=== PATIENT | male | born 1965 | race Caucasian/White ===

== ENCOUNTER 2018-01-19 04:32 | Inpatient (IN) | payer OTHER ==
[~2018-01-19] VITALS: Ht 175.3 cm; Wt 70.1 kg
[2018-01-19 04:42] VITALS: Ht 175.3 cm; Wt 70.1 kg
[2018-01-19 06:50] LABS: CALCIUM 8.8 mg/dL (8.5-10.1); CHLORIDE SERUM 101 mmol/L (98-107); CREATININE SERUM 1.1 mg/dL (0.7-1.3); GFR1 > 60 mL/min; GLUCOSE SERUM 381 mg/dL (74-106); POTASSIUM SERUM 4.3 mmol/L (3.5-5.1); SODIUM SERUM 138 mmol/L (136-145)
[2018-01-19 06:58] LABS: ALKALINE PHOSPHATASE 120 U/L (46-116); ALT/SGPT 23 U/L (16-63); AST/SGOT 16 U/L (15-37); BILIRUBIN TOTAL 0.3 mg/dL (0.20-1.00); TOTAL PROTEIN, SERUM 7.3 g/dL (6.4-8.2)
[2018-01-19 07:03] LABS: BASOPHIL % 0.3 % (0-2); PLATELET COUNT 242 x10^3mcL (130-400); RED CELL DISTRIBUTION WIDTH 13.2 % (11.5-14.5)
[2018-01-19 09:10] LABS: microscopic required? NO
[2018-01-19 09:39] LABS: UA SPECIFIC GRAVITY 1.015 (1.005-1.035); urine erythrocyte NEGATIVE (NEGATIVE)
[2018-01-19 09:42] LABS: FREE T4 1.06 ng/dL (0.76-1.46); FREE THYROXINE INDEX 2.6 ug/dL (1.4-4.5); T4(THYROXINE) 6.9 ug/dL (4.7-13.3)
[2018-01-19 09:57] LABS: CHOLESTEROL/HDL RATIO 3.1; PHOSPHOROUS 3.2 mg/dL (2.5-4.9)
[2018-01-19 10:20] LABS: AMPHETAMINE QUAL UR POSITIVE
[2018-01-19 10:29] VITALS: BP 108/78
[2018-01-19 17:40] VITALS: BP 111/69
[2018-01-19 20:44] VITALS: BP 126/75
[2018-01-20 05:43] VITALS: BP 124/77
[2018-01-20 09:09] VITALS: BP 110/68
[2018-01-20 12:36] VITALS: BP 114/70
[2018-01-20 16:06] VITALS: BP 110/68
[2018-01-20 20:24] LABS: BASOPHIL % 0.4 % (0-2); PLATELET COUNT 248 x10^3mcL (130-400); RED CELL DISTRIBUTION WIDTH 13.4 % (11.5-14.5)
[2018-01-20 20:31] LABS: CALCIUM 8.6 mg/dL (8.5-10.1); CARBON DIOXIDE 29.9 mmol/L (21-32); CHLORIDE SERUM 101 mmol/L (98-107); GFR1 > 60 mL/min; GLUCOSE SERUM 300 mg/dL (74-106); POTASSIUM SERUM 4.5 mmol/L (3.5-5.1); SODIUM SERUM 137 mmol/L (136-145)
[2018-01-20 20:53] VITALS: BP 111/73
[2018-01-21 05:00] VITALS: BP 112/72
[2018-01-21 07:44] LABS: CALCIUM 8.5 mg/dL (8.5-10.1); CARBON DIOXIDE 27.7 mmol/L (21-32); CHLORIDE SERUM 102 mmol/L (98-107); CREATININE SERUM 0.8 mg/dL (0.7-1.3); GFR1 > 60 mL/min; GLUCOSE SERUM 284 mg/dL (74-106); MAGNESIUM 1.6 mg/dL (1.8-2.4); PHOSPHOROUS 3.5 mg/dL (2.5-4.9); POTASSIUM SERUM 4.6 mmol/L (3.5-5.1); SODIUM SERUM 138 mmol/L (136-145)
[2018-01-21 07:51] LABS: BASOPHIL % 0.4 % (0-2); PLATELET COUNT 245 x10^3mcL (130-400); RED CELL DISTRIBUTION WIDTH 13.6 % (11.5-14.5)
[2018-01-21 08:21] VITALS: BP 117/77
[2018-01-21 08:25] VITALS: BP 117/77
== END 2018-01-21 12:50 | disposition left against medical advice (07) | DRG 380 ==
LOC: ED 04:32 → DU 08:03
PROVIDERS: Emergency Medicine; Family Medicine; Student in an Organized Health Care Education/Training Program
PROC: 0JBQ0ZZ Excision of Right Foot Subcutaneous Tissue and Fascia, Open Approach (ICD-10-PCS; principal; 2018-01-19)
DX: E11.621 Type 2 diabetes mellitus with foot ulcer (principal); L97.519 Non-pressure chronic ulcer of other part of right foot with unspecified severity; N17.0 Acute kidney failure with tubular necrosis; L03.115 Cellulitis of right lower limb; E11.40 Type 2 diabetes mellitus with diabetic neuropathy, unspecified; E11.65 Type 2 diabetes mellitus with hyperglycemia; Z53.21 Procedure and treatment not carried out due to patient leaving prior to being seen by health care provider; F17.210 Nicotine dependence, cigarettes, uncomplicated; E44.1 Mild protein-calorie malnutrition; Z68.24 Body mass index [BMI] 24.0-24.9, adult
CPT/HCPCS: 82962; 83880; 84439; J0696; J1815; J3490; J7030; Q0092

== ENCOUNTER 2018-12-06 00:44 | Inpatient (IN) | payer OTHER ==
[~2018-12-06] VITALS: Ht 172.7 cm; Wt 72.6 kg
[2018-12-06 00:51] VITALS: Ht 172.7 cm; Wt 72.6 kg
--- NOTE | 2018-12-06 00:59 | NUR ---
PT BIB [facility] WITH C/O SHARP SUPRASTERNAL CHEST PAIN X2 DAYS PER RESEARCH NEUROPSYCHOLOGIST +DIZZINESS -LOC +N -V RESEARCH NEUROPSYCHOLOGIST STS "I COULDN'T FIGURE OUT WHAT RHYTHM HE WAS IN" PT HX DM AND GERD UPON ARRIVAL PT AAOX4 RESPS E/U SKIN PINK DRY AND WARM PT PLACED ON FULL ORDERLY NSR PAIN LEVEL 10/10 PER PT "IT COMES AND GOES BUT FEELS LIKE HEARTBURN"
--- NOTE | 2018-12-06 01:05 | NUR ---
LAB AT BEDSIDE
--- NOTE | 2018-12-06 01:08 | NUR ---
PT PROVIDED EMESIS BAG ACTIVE VOMITING AT THIS TIME MD STREETER MADE AWARE
[2018-12-06 01:15] LABS: BASOPHIL % 0.1 % (0-2); PLATELET COUNT 243 x10^3mcL (130-400); RED CELL DISTRIBUTION WIDTH 12.7 % (11.5-14.5)
--- NOTE | 2018-12-06 01:28 | NUR ---
PT REPORTING NAUSEA AND DRY HEAVING AT THIS TIME. MD STREETER MADE AWARE.
[2018-12-06 01:30] LABS: BILIRUBIN TOTAL 0.5 mg/dL (0.20-1.00); CALCIUM 11.5 mg/dL (8.5-10.1); CARBON DIOXIDE 34.9 mmol/L (21-32); CREATININE SERUM 1.7 mg/dL (0.7-1.3)
[2018-12-06 01:33] LABS: TOTAL PROTEIN, SERUM 8.6 g/dL (6.4-8.2)
--- NOTE | 2018-12-06 01:34 | NUR ---
AT BEDSIDE TO MEDICATE PT PER EMAR. PT REFUSING MEDICATION AT THIS TIME STATING THAT NAUSEA WENT AWAY.
--- NOTE | 2018-12-06 02:19 | NUR ---
PT IN POSITION OF COMFORT RESPS E/U
[2018-12-06] MEDS ORDERED: METFORMIN HCL1000 MG PO (02:26)
[2018-12-06 02:58] LABS: T3 TOTAL 1.31 ng/mL
[2018-12-06 03:08] LABS: MAGNESIUM 1.9 mg/dL (1.8-2.4); PHOSPHOROUS 3.1 mg/dL (2.5-4.9)
[2018-12-06 03:09] LABS: CHOLESTEROL/HDL RATIO 4.4
[2018-12-06 03:18] LABS: FREE T4 1.64 ng/dL (0.76-1.46); FREE THYROXINE INDEX 4.1 ug/dL (1.4-4.5)
--- NOTE | 2018-12-06 03:30 | NUR ---
RECEIVED PT FROM ED VIA AZALIA ACCOMPANIED BY RN. AA&O X4. NO SOB ON ROOM AIR. BREATHING EVEN AND UNLABORED. C/O EPIGASTRIC PAIN 6/10 AND NAUSEA. WILL MEDICATE PER ORDER. IV TO LAC, INTACT. SAFETY MEASURES IN PLACE. BED IN LOWEST POSITION. SIDE RAILS UP X2. DEMONSTRATED HOW TO USE THE CALL LIGHT FOR ASSISTANCE. CALL LIGHT WITHIN REACH.
[2018-12-06 03:32] LABS: UA SPECIFIC GRAVITY 1.015 (1.005-1.035); microscopic required? YES
[2018-12-06 03:34] LABS: urine erythrocyte NEGATIVE (NEGATIVE)
[2018-12-06 03:37] LABS: AMPHETAMINE QUAL UR NONE DETECTED (See below)
[2018-12-06 03:53] VITALS: BP 132/61
--- NOTE | 2018-12-06 04:30 | NUR ---
ZOFRAN GIVEN FOR NAUSEA.
--- NOTE | 2018-12-06 05:00 | NUR ---
PT REFUSED NORCO AT THIS TIME. PT STATES WILL WAIT A LITTLE BIT DUE TO NAUSEA.
--- NOTE | 2018-12-06 05:15 | NUR ---
PT RESTING WITH EYES CLOSED. NO FACIAL GRIMACING. NO DISTRESS NOTED AT THIS TIME.
[2018-12-06 06:26] VITALS: BP 118/63
--- NOTE | 2018-12-06 07:10 | NUR ---
RECEIVED BEDSIDE REPORT FROM ANALYSIS INTERNSHIP NURSE. PATIENT IS SEEN RESTING COMFORTABLY IN BED. RESPIRATIONS EVEN, NO SIGNS OF APPARENT SOB, OR RESPIRATORY DISTRESS NOTED. IV INFUSING WELL INTO LAC. NO REDNESS NOTED. SAFETY PRECAUTIONS IN PLACE.
[2018-12-06 07:25] VITALS: BP 108/61
--- NOTE | 2018-12-06 07:25 | NUR ---
PT RESTING WITH EYES CLOSED. NO SOB ON ROOM AIR. NO DISTRESS NOTED. SAFETY MEASURES IN PLACE. CALL LIGHT WITHIN REACH. ENDORSED CONTINUITY OF CARE TO DAY SHIFT RN.
--- NOTE | 2018-12-06 07:30 | NUR ---
IVF NS RUNNING AT 100 CC/HR VIA IV SITE AT L AC. SCD TO BLE MAINTAINED. WILL CONTINUE TO MONITOR.
--- NOTE | 2018-12-06 08:30 | NUR ---
NEW IV SITE RESTARTED AT R FA WITH GAUGE #22 DUE TO DISLODGEMENT OF OLD IV H/L.
[2018-12-06 08:33] LABS: CALCIUM 9.8 mg/dL (8.5-10.1); CARBON DIOXIDE 33.5 mmol/L (21-32); CREATININE SERUM 1.4 mg/dL (0.7-1.3); POTASSIUM SERUM 4.4 mmol/L (3.5-5.1)
--- NOTE | 2018-12-06 08:47 | NUR ---
C/O FEELING NAUSEATED. ZOFRAN 4MG IV GIVEN.
[2018-12-06 11:11] LABS: BASOPHIL % 0.2 % (0-2); PLATELET COUNT 209 x10^3mcL (130-400)
--- NOTE | 2018-12-06 11:57 | NUR ---
CHEMICAL TREATMENT OPERATOR AT BEDSIDE.
--- NOTE | 2018-12-06 12:00 | NUR ---
TRANSFER ORDER FROM TELE TO MED SURG. DISCONTINUED TELE RETURNED MONITOR. PATIENT IS STABLE NO COMPLAINTS OF CHEST PAIN AT THIS TIME.
--- NOTE | 2018-12-06 12:24 | NUR ---
PATIENT IS RESTING IN BED. WAS COMPLAINING OF ANDREW. ADMINISTERED TYLENOL PER EMAR. AUNT AT BEDSIDE. QUESTIONS AND CONCERNS ADDRESSED. SAFETY PRECAUTIONS IN PLACE.
--- NOTE | 2018-12-06 13:15 | NUR ---
REASSESSMENT OF TYLENOL FOR HEADACHE. MEDICATION WAS EFFECTIVE. PATIENT IS RESTING COMFORATBLY AND STATES PAIN LEVEL AT 0/10 AT THIS TIME.
--- NOTE | 2018-12-06 13:33 | NUR ---
PATIENT C/O N/V. ADMINISTERED ZOFRAN PER EMAR. PATIENT TOLORATED WELL. SAFETY PRECAUTIONS IN PLACE.
--- NOTE | 2018-12-06 15:00 | NUR ---
PATIENT IN BED RESTING COMFORTABLY. FAMILY IS AT BEDSIDE. SAFETY PRECAUTIONS IN PLACE.
[2018-12-06 16:15] VITALS: BP 111/65
--- NOTE | 2018-12-06 17:02 | NUR ---
PATIENT IS IN BED RESTING COMFORTABLY, NO SIGNS OF SOB, PATIENT DENIES PAIN AT THIS TIME. QUESTIONS ADDRESSED. SAFETY PRECAUTIONS IN PLACE.
--- NOTE | 2018-12-06 19:25 | NUR ---
RECEIVED PT IN BED RESTING QUIETLY. HE IS ALERT,ORIENTED X4. LUNGS CTA. BOWEL SOUNDS ACTIVE. HE HAS NO C/O ABDL PAIN. NO C/O N/V AT THIS TIME. PT STATED HE WAS ABLE TO EAT A LITTLE BIT OF HIS DINNER. W/ IVF NS AT 100 CC/HR VIA RTFA. CALL LIGHT W/IN REACH.
--- NOTE | 2018-12-06 20:22 | NUR ---
PT C/O ABDL PAIN 02/18. NORCO 7.5/325 MG PO GIVEN.
[2018-12-06 20:23] VITALS: BP 113/71
--- NOTE | 2018-12-07 00:49 | NUR ---
PT APPEARS TO BE SLEEPING COMFORTABLY. NO C/O DISCOMFORT AT THIS TIME.
--- NOTE | 2018-12-07 05:05 | NUR ---
PT SLEPT THROUGH THE NIGHT. HE WAS MEDICATED FOR ABDL PAIN X1 W/ RELIEF. HE HAD NO C/O N/V. IVF NS INFUSING AT 100 CC/HR VIA RTFA. ALL NEEDS ATTENDED TO.
[2018-12-07 05:34] VITALS: BP 122/53
--- NOTE | 2018-12-07 06:08 | NUR ---
PT C/O HAVING HICCUPS. DR. AGUILLON INFORMED AND GAVE ORDER. PT MEDICATED W/ TUMS PO ORDERED.
[2018-12-07 06:16] LABS: BASOPHIL % 0.3 % (0-2); PLATELET COUNT 192 x10^3mcL (130-400); RED CELL DISTRIBUTION WIDTH 13.6 % (11.5-14.5)
[2018-12-07 06:58] LABS: CALCIUM 8.5 mg/dL (8.5-10.1); CARBON DIOXIDE 29.4 mmol/L (21-32); CHLORIDE SERUM 99 mmol/L (98-107); CREATININE SERUM 1.2 mg/dL (0.7-1.3); GFR1 > 60 mL/min; GLUCOSE SERUM 160 mg/dL (74-106); MAGNESIUM 1.8 mg/dL (1.8-2.4); PHOSPHOROUS 2.6 mg/dL (2.5-4.9); POTASSIUM SERUM 4.1 mmol/L (3.5-5.1); SODIUM SERUM 136 mmol/L (136-145)
--- NOTE | 2018-12-07 07:10 | NUR ---
RECEIVED BEDSIDE REPORT FROM MOGUL OPERATOR NURSE. PATIENT IS SEEN RESTING IN BED COMFORTABLY ON LEFT SIDE. PATIENT IS ON ROOM AIR. NO TELE MONITOR PATIENT IS ON MED SURG. RESPIRATIONS ARE EVEN, NOT LABORED, NO APPARENT SOB, PAIN, OR RESPIRATORY DISTRESS. IV TO RFA IS INFUSING WELL, N/S AT 100ML PER HR. QUESTIONS AND CONCERNS ADDRESSED. SAFETY PRECAUTIONS MAINTAINED.
--- NOTE | 2018-12-07 07:26 | NUR ---
PT VERBALIZED HIS HICCUPS WENT AWAY AFTER TAKING TUMS. PT RESTING COMFORTABLY AT THIS TIME. ENDORSED TO AM NURSE.
--- NOTE | 2018-12-07 08:40 | NUR ---
ADMINISTERED AM MEDS. PATIENT TOLORATED WELL. PATIENT EATING BREAKFAST. DENIES ANY OTHER NEEDS AT THIS TIME. SAFTEY PRECAUTIONS IN PLACE.
[2018-12-07 10:21] VITALS: BP 112/61
--- NOTE | 2018-12-07 10:25 | NUR ---
PATIENT IS SITTING AT THE EDGE OF THE BED. IV WAS BEEPING. ALARM ADRESSED. SAFETY PRECAUTIONS IN PLACE, PATIENT DENIES OTHER NEEDS AT THIS TIME.
--- NOTE | 2018-12-07 12:03 | NUR ---
RECEIVED CALL FROM RADIOLOGY REGARDING SCHEDULED STRESS TEST FOR TOMORROW Saturday12/08/18 AT 1100. PER CRYSTALIZER TENDER PATIENT MUST BED NPO 4 HOURS PRIOR TO TEST, NPO AFTER 0700. NO BETABLOCKERS OF NOW UNTIL AFTER THE CARIAC TEST. WILL ENDORSE TO TRIMMER OPERATOR THREE KNIFE NURSE.
--- NOTE | 2018-12-07 15:55 | NUR ---
PATIENT IS STABLE, DENIES CHEST PAIN, OR DIZZINESS. RECEIVED ORDER TO TRANSFER FORM TELE TO MS. REMOVED AND RETURNED TELE MONITOR.
[2018-12-07 17:54] VITALS: BP 133/69
--- NOTE | 2018-12-07 18:16 | NUR ---
PATIENT IS RESTING COMFORTABLY IN BED. NO APPARENT SIGNS OF SOB. PATIENT DENIES PAIN AT THIS TIME. DENIES ANY OTHER NEEDS AT THIS TIME.
--- NOTE | 2018-12-07 18:57 | NUR ---
PATIENT STABLE ALERT AND ORIENTED X4. HAS IV TO RFA THAT IS INFUSING WELL. PATIENT IS MED SURG. STRESS TEST SCHEDULED FOR TOMORROW Saturday12/08/18 AT 11 AM. PER TECH NPO 4 HOURS PRIOR TO TEST AND NO BETA BLOCKERS TODAY UNTIL AFTER TEST. SAFETY PRECAUTIONS MAINTAINED, QUESTIONS AND CONCERNS ADRESSED. WILL ENDORSE CARE TO PRESTRESSED CONCRETE LABORER NURSE.
--- NOTE | 2018-12-07 19:16 | NUR ---
RECEIVED PT IN BED ASLEEP BUT EASILY AROUSABLE. HE IS ALERT,ORIENTED X4. NO SOB NOTED ON ROOM AIR. BOWEL SOUNDS ACTIVE. PT HAS NO C/O PAIN AT THIS TIME. NO C/O N/V. W/ IVF NS AT 100 CC/HR VIA RTFA. CALL LIGHT W/IN REACH.
--- NOTE | 2018-12-07 20:55 | NUR ---
CALLED DR. PEÑA BUT SPOKE WITH DR. WERNER TO CLARIFY IF STRESS TEST IS CANCELLED OR NOT ( ORDER SHOWS CANCELLED). PER DR. WERNER HE WILL CALL BACK AFTER HE CLARIFIES IT W/ DR. PEÑA.
[2018-12-07 20:56] VITALS: BP 146/78
--- NOTE | 2018-12-07 21:43 | NUR ---
DR. PEÑA CALLED BACK AND SAID THAT STRESS TEST IS CANCELLED AND THAT HE SPOKE ABOUT IT WITH THE PT TODAY.
[2018-12-08 05:09] VITALS: BP 114/65
--- NOTE | 2018-12-08 05:55 | NUR ---
INFORMED DR. AGUILLON THAT PT REFUSED BLOOD DRAW THIS AM.
--- NOTE | 2018-12-08 06:16 | NUR ---
PT SLEPT THROUGH THE NIGHT. HE HAD NO C/O ABDL PAIN. NO EPISODE OF N/V. PT STATED HE HAD HICCUPS ONE TIME ONLY DURING THE NIGHT. IVF NS INFUSING WELL AT 100 CC/HR VIA RTFA. PT INFORMED THAT STRESS TEST WAS CANCELLED PER DR. PEÑA.
--- NOTE | 2018-12-08 08:04 | NUR ---
A+OX4, NO RESPIRATORY DISTRESS NOTED, MEDSURG, PULSES MODERATE AND EQUAL FLAVIO, NO EDEMA NOTED, SCDS ON, LUNG SOUNDS CTA, TOLERATING RA, BOWEL SOUNDS ACTIVE, VOIDING FREELY, AMBULATORY, R BIG TOE AMPUTATED AND HEALED WITH DRY SKIN DECORATING INSPECTOR, IV IN RFA WITH NS @ 100 ML/HR, SITE WNL.
[2018-12-08 09:32] VITALS: BP 110/63
--- NOTE | 2018-12-08 10:29 | NUR ---
PT RESTING IN BED, NO RESPIRATORY DSITRESS NOTED, DENIES PAIN, PT STATES HE IS READY TO GO HOME. CALL LIGHT WITHIN REACH.
[2018-12-08 12:11] VITALS: BP 110/63
--- NOTE | 2018-12-08 12:12 | NUR ---
PT REFUSED ACCUCHECK AND STATES, "IM GOING HOME, I DONT NEED THAT." NO RESPRIATORY DSITRESS NOTED, DENIES PAIN, CALL LIGHT WITHIN REACH.
--- NOTE | 2018-12-08 13:04 | NUR ---
PT GIVEN DC INSTRUCTIONS AND VERBALIZED UNDERSTANDING, IV REMOVED WITH CATHETER INTACT, GAUZE AND TAPE PLACED ON SITE, NO ERYTHEM OR SWELLING TO SITE, MEDSURG WITH NO TELE, PT AWAITING PAY STATION ATTENDANT BY MOTHER.
--- NOTE | 2018-12-08 14:18 | NUR ---
PT OFF UNIT AMBULATING INDEPENDENTLY WITH ALL BELONGINGS ESCORTED BY MOTHER AND OUTSOLE LEVELER.
== END 2018-12-08 14:22 | disposition home or self-care (01) | DRG 243 ==
LOC: ED 00:44 → DU 02:02 → MU 02:02 → DU 03:30 → MU 12:08
PROVIDERS: Emergency Medicine; ADMIT Internal Medicine
DX: K21.9 Gastro-esophageal reflux disease without esophagitis (principal); N17.0 Acute kidney failure with tubular necrosis; E11.65 Type 2 diabetes mellitus with hyperglycemia; E87.1 Hypo-osmolality and hyponatremia; E83.52 Hypercalcemia; I42.9 Cardiomyopathy, unspecified; E78.5 Hyperlipidemia, unspecified; F17.210 Nicotine dependence, cigarettes, uncomplicated; Z89.421 Acquired absence of other right toe(s)
CPT/HCPCS: 82962; 84439; J1815; J2270; J2405; J7030; Q0161

== ENCOUNTER 2020-09-21 22:40 | Observation (INO) | payer OTHER ==
[~2020-09-21] VITALS: Ht 170.2 cm; Wt 81.6 kg
[~2020-09-21 22:40] MED LIST: METFORMIN HCL1000 MG PO
[2020-09-21 22:49] VITALS: Ht 170.2 cm; Wt 81.6 kg
[2020-09-21 23:32] LABS: PLATELET COUNT 281 x10^3mcL (152-348)
[2020-09-21 23:36] LABS: CALCIUM 8.7 mg/dL (8.5-10.1); CARBON DIOXIDE 27.3 mmol/L (21-32); CHLORIDE SERUM 102 mmol/L (98-107); CREATININE SERUM 1.1 mg/dL (0.7-1.3); GFR1 > 60 mL/min; GLUCOSE SERUM 122 mg/dL (74-106); SODIUM SERUM 138 mmol/L (136-145)
[2020-09-21 23:41] LABS: ALBUMIN 3.4 g/dL (3.4-5.0); ALKALINE PHOSPHATASE 80 U/L (46-116); ALT/SGPT 19 U/L (16-63); AST/SGOT 17 U/L (15-37); BASOPHIL % 2.2 % (0.2-1.5); BILIRUBIN TOTAL 0.2 mg/dL (0.20-1.00); RED CELL DISTRIBUTION WIDTH 15.3 % (12.1-16.2)
[2020-09-21 23:45] LABS: TOTAL PROTEIN, SERUM 8.3 g/dL (6.4-8.2)
[2020-09-22 02:14] LABS: UA SPECIFIC GRAVITY 1.025 (1.005-1.035); microscopic required? YES; urine erythrocyte TRACE (NEGATIVE)
[2020-09-22 02:30] LABS: AMPHETAMINE QUAL UR POSITIVE (See below)
[2020-09-22 03:04] VITALS: BP 137/74
[2020-09-22 05:35] VITALS: BP 134/68
[2020-09-22 07:37] LABS: BASOPHIL % 0.3 % (0.2-1.5); PLATELET COUNT 284 x10^3mcL (152-348)
[2020-09-22 08:08] LABS: RED CELL DISTRIBUTION WIDTH 15.2 % (12.1-16.2)
[2020-09-22 08:28] LABS: CALCIUM 8.9 mg/dL (8.5-10.1); CARBON DIOXIDE 27.6 mmol/L (21-32); CHLORIDE SERUM 105 mmol/L (98-107); CHOLESTEROL 143 mg/dL (<200); CHOLESTEROL/HDL RATIO 4.1; GFR1 > 60 mL/min; GLUCOSE SERUM 66 mg/dL (74-106); HDL CHOLESTEROL 35 mg/dL (40-60); MAGNESIUM 2.1 mg/dL (1.8-2.4); POTASSIUM SERUM 4.6 mmol/L (3.5-5.1); SODIUM SERUM 137 mmol/L (136-145); TRIGLYCERIDES 41 mg/dL (<150)
[2020-09-22 08:52] VITALS: BP 116/50
[2020-09-22 12:09] VITALS: BP 123/58
[2020-09-22] MEDS ORDERED: METFORMIN HCL1000 MG PO (14:02)
[2020-09-22 14:37] VITALS: BP 123/58
[2020-09-22 17:43] VITALS: BP 105/55
== END 2020-09-22 18:23 | disposition home or self-care (01) ==
LOC: ED 22:40 → DU 09-22 00:25
PROVIDERS: Emergency Medicine; ADMIT Internal Medicine; ATTEND Internal Medicine
DX: E11.65 Type 2 diabetes mellitus with hyperglycemia (principal); E11.42 Type 2 diabetes mellitus with diabetic polyneuropathy; I10 Essential (primary) hypertension; E78.5 Hyperlipidemia, unspecified; K21.9 Gastro-esophageal reflux disease without esophagitis; E66.9 Obesity, unspecified; Z20.828 Contact with and (suspected) exposure to other viral communicable diseases
CPT/HCPCS: 36600; 82962; 83880; G0378; J1650; J2405; J3490; J7030; U0003